=== PATIENT | male | born 1995 | race American Indian/Alaskan Native ===

== ENCOUNTER 2021-12-26 18:09 | Emergency (ER) | payer SELFPAY ==
[2021-12-26] MEDS ORDERED: AZITHROMYCIN 250 MG TAB PO ONE (19:52)
[2021-12-26] MEDS ORDERED: LIDOCAINE-MPF (1%) 10 MG/1 ML VIAL 5 ML INFILTRATI ONE (19:52)
[2021-12-26 19:59] VITALS: BP 132/89
[2021-12-26 20:26] LABS: Bilirubin,Urine NEG (Negative); Blood,Urine NEG (Negative); Color,Urine Yellow (Yellow); Protein,Urine <15 mg/dL mg/dL (Negative)
--- NOTE | 2021-12-26 20:41 | Emergency Department Report ---
ED Male HPI - General Chief complaint: Urogenital-Male Stated complaint: POSS INFECTION/DISCHARGE Time Seen by Provider: 12/26/21 19:39 Source: patient Mode of arrival: Ambulatory Limitations: No Limitations - History of Present Illness Initial comments: 26-year-old black male with no past medical history presents to the emergency department for evaluation of 1 day history of penile discharge. He states that he has intermittent dysuria but states that burning and discharge are not as prevalent as it was when he was previously diagnosed with gonorrhea. He does admit to having some unprotected sex over the past few weeks. He denies fever, abdominal pain, nausea, and vomiting. MD Complaint: penile discharge, dysuria -: Sudden, days(s) (1) Location: penis Severity scale (0 -10): 1 Quality: aching Consistency: intermittent Worsens with: urination discharge. denies: swelling, mass, rash, urinary retention, blood in urine, dysuria, fever, nausea/vomiting, incontinence - Related Data Sexually active: Yes Home Medications Medication Instructions Recorded Confirmed Last Taken No Known Home Medications [No 12/26/21 12/26/21 Unknown Reported Home Medications] Allergies Allergy/AdvReac Type Severity Reaction Status Date / Time No Known Allergies Allergy Verified 12/26/21 18:32 ED Review of Systems ROS: Stated complaint: POSS INFECTION/DISCHARGE Other details as noted in HPI Comment: All other systems reviewed and negative Constitutional: denies: chills, fever Respiratory: denies: shortness of breath, SOB with exertion Cardiovascular: denies: chest pain, palpitations Gastrointestinal: denies: abdominal pain, nausea, vomiting, diarrhea, hematemesis, melena, hematochezia Genitourinary: dysuria, discharge. denies: urgency, frequency, hematuria, testicular pain, testicular mass Musculoskeletal: denies: back pain Skin: denies: rash, lesions Neurological: denies: headache, weakness ED Past Medical Hx - Social History Smoking Status: Never Smoker Substance Use Type: None - Medications Home Medications: Home Medications Medication Instructions Recorded Confirmed Last Taken Type No Known Home Medications [No 12/26/21 12/26/21 Unknown History Reported Home Medications] ED Physical Exam - General Limitations: No Limitations General appearance: alert, in no apparent distress - Head Head exam: Present: atraumatic, normocephalic - Eye Eye exam: Present: normal appearance. Absent: conjunctival injection - Neck Neck exam: Present: normal inspection - Respiratory Respiratory exam: Absent: respiratory distress - Cardiovascular Cardiovascular Exam: Present: regular rate - GI/Abdominal GI/Abdominal exam: Present: soft. Absent: distended, tenderness - Extremities Exam Extremities exam: Present: normal inspection - Back Exam Back exam: Present: normal inspection. Absent: CVA tenderness (R), CVA tenderness (L) - Neurological Exam Neurological exam: Present: alert, oriented X3 - Psychiatric Psychiatric exam: Present: normal affect, normal mood - Skin Skin exam: Present: warm, dry, intact, normal color ED Course Vital Signs 12/26/21 12/26/21 18:32 19:57 Temperature 98.7 F 98.2 F Pulse Rate 83 72 Respiratory 20 20 Rate Blood Pressure 134/92 Blood Pressure 132/89 [Right] O2 Sat by Pulse 99 100 Oximetry ED Medical Decision Making - Medical Decision Making 26-year-old black male with no past medical history presents to the emergency department for evaluation of 1 day history of penile discharge. He states that he has intermittent dysuria but states that burning and discharge are not as prevalent as it was when he was previously diagnosed with gonorrhea. He does admit to having some unprotected sex over the past few weeks. He denies fever, abdominal pain, nausea, and vomiting. Given history and symptoms, patient will be prophylactically treated for gonorrhea and chlamydia. He refuses 7-day course of doxycycline and states that he prefers one-time azithromycin because he does not think that he will be compliant with pills. He will be tested for gonorrhea and chlamydia and notified if results are positive so that he can get his partner tested and treated. He was advised to hold off on having sex until he gets the results. He verbalized understanding of and agreement with plan of care. Critical care attestation.: If time is entered above; I have spent that time in minutes in the direct care of this critically ill patient, excluding procedure time. ED Disposition Clinical Impression: Urethritis Disposition: HOME / SELF CARE / HOMELESS Is pt being admited?: No Does the pt Need Aspirin: No Condition: Stable Instructions: Urethritis, Adult Additional Instructions: Follow-up with primary care provider if no improvement or worsening symptoms. Return to the emergency department as needed. Referrals: TISH BOLDEN MD [Referring] - 3-5 Days Forms: STI Treatment and Prevention Time of Disposition: 20:41
== END 2021-12-26 20:49 | disposition home or self-care (01) ==
LOC: ED 18:09
DX: N34.2 Other urethritis (principal)
CPT/HCPCS: 81001; 96372; 99283; J0696; J3490

== ENCOUNTER 2022-02-13 19:16 | Emergency (ER) | payer SELFPAY ==
[2022-02-14] MEDS ORDERED: FLUORESCEIN 1 MG STRIP OP STA (03:13)
== END 2022-02-14 23:00 | disposition home or self-care (01) ==
LOC: ED 19:16
DX: R36.9 Urethral discharge, unspecified (principal); Z53.21 Procedure and treatment not carried out due to patient leaving prior to being seen by health care provider